=== PATIENT | male | born 1975 | race Caucasian/White ===

== ENCOUNTER 2018-07-15 11:57 | Emergency (ER) | payer SELFPAY ==
[2018-07-15 12:26] LABS: Absolute Lymphocytes (CBC) 1.3 K/uL (0.7-4.9); Absolute Monocytes 0.6 K/uL (0.1-1.3); Absolute Neutrophil 6.9 K/uL (1.8-8.0); Basophils % 0.4 % (0-1.3); Eosinophils % 0.8 % (0-4.4); Hematocrit 42.7 % (39.6-49.0); Lymphocytes % 14.4 % (15.3-44.8); MCH 31.3 pg (27.0-35.0); MCV 91.1 fL (80-100); MPV 7.4 fL (7.6-11.3); Monocytes % 6.5 % (3.3-12.3); RBC Red Blood Cell Count 4.69 M/uL (4.33-5.43)
[2018-07-15] MEDS ORDERED: ASPIRIN 81 MG CHEWABLE TABLET ONE (12:27)
[2018-07-15 12:31] LABS: Protime INR 1.06
[2018-07-15 12:45] LABS: ALT/SGPT 59 U/L (12-78); AST/SGOT 39 U/L (15-37); Albumin 4.2 g/dL (3.4-5.0); Alkaline Phosphatase 90 U/L (45-117); BUN Blood Urea Nitrogen 9 mg/dL (7-18); Bicarbonate 26 mmol/L (21-32); Bilirubin Direct 0.1 mg/dL (0-0.2); Bilirubin Total 0.5 mg/dL (0.2-1.0); Glucose Level 85 mg/dL (74-106); Magnesium 2.1 mg/dL (1.8-2.4); NT PRO-BNP 16 pg/mL (<125); Potassium 3.9 mmol/L (3.5-5.1); Protein, Total 8.8 g/dL (6.4-8.2); Sodium Level 139 mmol/L (136-145); Troponin (Emerg Dept Use Only) < 0.02 ng/mL (0.0-0.045)
--- NOTE | 2018-07-15 13:35 | RAD REPORT ---
EXAM DESCRIPTION: Darcy Single View07/15/2018 1:23 pm CLINICAL HISTORY: Chest pain COMPARISON: none FINDINGS: The lungs appear clear of acute infiltrate. The heart is normal size IMPRESSION: No acute abnormalities displayed
[2018-07-15] MEDS ORDERED: KETOROLAC 30 MG/ML INJ ONE (14:17)
[2018-07-15] MEDS ORDERED: METOPROLOL TAR 25 MG TAB ONE (14:17)
--- NOTE | 2018-07-15 14:44 | ER ---
Nurse's Notes [facility] Name: Douglas Varghese Age: 42 yrs Sex: Male : 1975 Arrival Date: 07/15/2018 Time: 11:58 Bed 8 Private MD: None, None Diagnosis: Chest pain, unspecified Presentation: 07/15 11:58 Presenting complaint: Patient states: Chest pressure since yesterday that is only there aj1 when he takes a deep breath, he went to Urgent Care today to have his medications refilled, but they told him that he needed to come to the ER to be evaluated. Denies SOB, palpitations. Denies cough, congestion. Transition of care: patient was not received from another setting of care. Onset of symptoms was July 14, 2018. Risk Assessment: Do you want to hurt yourself or someone else? Patient reports no desire to harm self or others. Initial Sepsis Screen: Does the patient meet any 2 criteria? HR > 90 bpm. No. Patient's initial sepsis screen is negative. Does the patient have a suspected source of infection? No. Patient's initial sepsis screen is negative. Care prior to arrival: None. 11:58 Method Of Arrival: Ambulatory aj1 11:58 Acuity: PAT 3 aj1 Triage Assessment: 12:01 General: Appears in no apparent distress. uncomfortable, Behavior is calm, cooperative, aj1 appropriate for age. Pain: Complains of pain in mid-sternal area Pain currently is 3 out of 10 on a pain scale. Quality of pain is described as pressure. Neuro: Level of Consciousness is awake, alert, obeys commands. Cardiovascular: Reports chest pain, Patient's skin is warm and dry. Respiratory: Airway is patent Respiratory effort is even, unlabored, Respiratory pattern is regular, symmetrical. Historical: - Allergies: 12:01 No Known Allergies; aj1 - Home Meds: 12:01 losartan oral oral [Active]; Metoprolol Tartrate Oral [Active]; aj1 - PMHx: 12:01 Hypertension; aj1 - Immunization history:: Flu vaccine is not up to date. - Social history:: Smoking status: Patient/guardian denies using tobacco. - Ebola Screening: : Patient denies travel to an Ebola-affected area in the 21 days before illness onset. Screenin:05 Abuse screen: Denies threats or abuse. Denies injuries from another. Nutritional sv screening: No deficits noted. Tuberculosis screening: No symptoms or risk factors identified. Fall Risk None identified. Assessment: 12:13 General: Appears in no apparent distress. comfortable, well groomed, Behavior is calm, ph cooperative, appropriate for age, Denies fever, feeling ill. Pain: Complains of pain in anterior aspect of left upper chest and mid-sternal area Pain does not radiate. Quality of pain is described as pressure, Pain began 1 day ago. Aggravated by breathing. Neuro: Level of Consciousness is awake, alert, obeys commands, Oriented to person, place, time, situation, Reports headache in right parietal area, Denies weakness blurred vision. Cardiovascular: Reports chest pain, Denies nausea, palpitations, shortness of breath, Capillary refill < 3 seconds in bilateral fingers Patient's skin is warm and dry. Chest pain quality is pressure, is located in left anterior chest wall substernal area began 1 day ago is aggravated by breathing. Respiratory: Reports pain with respiration Airway is patent Respiratory effort is even, unlabored, Respiratory pattern is regular, symmetrical, Breath sounds are clear bilaterally. Denies cough, shortness of breath. GI: Patient currently denies abdominal pain, nausea, vomiting. Derm: Skin is intact, is healthy with good turgor, Skin is pink, warm \T\ dry. Musculoskeletal: Circulation, motion, and sensation intact. Range of motion: intact in all extremities. 13:46 Reassessment: Patient appears in no apparent distress at this time. No changes from ph previously documented assessment. Patient and/or family updated on plan of care and expected duration. Pain level reassessed. Patient is alert, oriented x 3, equal unlabored respirations, skin warm/dry/pink. 14:57 Reassessment: Patient appears in no apparent distress at this time. Patient and/or ph family updated on plan of care and expected duration. Pain level reassessed. Patient is alert, oriented x 3, equal unlabored respirations, skin warm/dry/pink. Pt reports that chest discomfort has improved, rates 09/16, pt given prescriptions for home BP meds and a list of providers in the area, d/c home w/ SO. Vital Signs: 12:01 BP 155 / 101; Pulse 93; Resp 18; Temp 97.1; Pulse Ox 99% on R/A; Weight 97.52 kg (R); aj1 Height 5 ft. 11 in. (180.34 cm) (R); Pain 3/10; 12:38 BP 143 / 104; Pulse 88; Resp 18; Pulse Ox 100% on R/A; ph 13:45 BP 159 / 103; Pulse 84; Resp 18; Pulse Ox 98% on R/A; ph 14:46 BP 145 / 81; Pulse 74; Resp 14; Temp 97.4; Pulse Ox 99% on R/A; Pain 1/10; ph 12:01 Body Mass Index 29.99 (97.52 kg, 180.34 cm) aj1 Vitals: 12:38 Cardiac Rhythm Assessment Sinus rhythm. ph ED Course: 11:58 Patient arrived in ED. sb2 11:58 None, None is Private Physician. sb2 12:00 Triage completed. aj1 12:01 Arm band placed on Patient placed in an exam room. aj1 12:04 Loida Mclean, RN is Primary Nurse. ph 12:05 Patient has correct armband on for positive identification. Bed in low position. Door sv closed. Head of bed elevated. 12:06 Robert Miles PA is PHCP. jr8 12:07 Kole Guillaume MD is Attending Physician. jr8 12:17 desk monitor on. Pulse ox on. NIBP on. Warm blanket given. ph 12:18 Patient maintains SpO2 saturation greater than 95% on room air. ph 12:23 Initial lab(s) drawn, by mo, sent to lab. Inserted saline lock: 20 gauge in right em1 antecubital area, using aseptic technique. Blood collected. 12:28 EKG done, by manufacturing plant technician. reviewed by Robert GARVIN. at1 13:23 XRAY Chest (1 view) In Process Unspecified. EDMS 14:59 No provider procedures requiring assistance completed. IV discontinued, intact, ph bleeding controlled, No redness/swelling at site. Pressure dressing applied. Administered Medications: 12:23 Drug: Aspirin Chewable Tablet 324 mg Route: PO; ph 14:45 Follow up: Response: No adverse reaction ph 14:13 Drug: Metoprolol 25 mg Route: PO; ph 14:46 Follow up: Response: No adverse reaction; Blood pressure is lowered ph 14:14 Drug: TORadol 30 mg Route: IVP; Site: right antecubital; ph 14:45 Follow up: Response: No adverse reaction; Pain is decreased ph 14:45 Drug: Losartan-Hydrochlorothiazide 50 mg-12.5 mg 1 tablet Route: PO; ph 14:46 Follow up: Response: No adverse reaction; Medication administered at discharge.; same ph as pt's home medication Intake: Outcome: 14:43 Discharge ordered by MD. winslow 14:59 Discharged to home ambulatory, with significant other. ph 14:59 Condition: good 14:59 Discharge instructions given to patient, Instructed on discharge instructions, follow up and referral plans. medication usage, Demonstrated understanding of instructions, follow-up care, medications, Prescriptions given X 3. 15:00 Patient left the ED. ph Signatures: Dispatcher [employer] EDMS Anais Holt RN RN aj1 Patricia Mclaughlin RN RN Priyank Adams em1 Robert Miles PA PA jr8 Esther Luevano, contract negotiation manager EKG Tat1 Loida Mclean RN RN Aide Wolfe sb2
--- NOTE | 2018-07-15 14:44 | EDPHYS ---
Physician Documentation [facility] Name: Douglas Varghese Age: 42 yrs Sex: Male : 1975 Arrival Date: 07/15/2018 Time: 11:58 Bed 8 Private MD: None, None ED Physician Kole Guillaume HPI: 07/15 12:31 This 42 yrs old Male presents to ER via Ambulatory with complaints of Chest Pain. jr8 12:31 The patient or guardian reports chest pain that is located primarily in the substernal jr8 area. Onset: acutely, today. The pain does not radiate. Associated signs and symptoms: The patient has no apparent associated signs or symptoms. The chest pain is described as a pressure. Duration: The patient or guardian reports a single episode, that is still ongoing. Modifying factors: The symptoms are alleviated by nothing. the symptoms are aggravated by breathing. Severity of pain: At its worst the pain was mild in the emergency department the pain is unchanged. The patient has not experienced similar symptoms in the past. The patient has not recently seen a physician. Historical: - Allergies: 12:01 No Known Allergies; aj1 - Home Meds: 12:01 losartan oral oral [Active]; Metoprolol Tartrate Oral [Active]; aj1 - PMHx: 12:01 Hypertension; aj1 - Immunization history:: Flu vaccine is not up to date. - Social history:: Smoking status: Patient/guardian denies using tobacco. - Ebola Screening: : Patient denies travel to an Ebola-affected area in the 21 days before illness onset. ROS: 12:31 Eyes: Negative for injury, pain, redness, and discharge, ENT: Negative for injury, jr8 pain, and discharge, Neck: Negative for injury, pain, and swelling, Respiratory: Negative for shortness of breath, cough, wheezing, and pleuritic chest pain, Abdomen/GI: Negative for abdominal pain, nausea, vomiting, diarrhea, and constipation, Back: Negative for injury and pain, MS/Extremity: Negative for injury and deformity, Skin: Negative for injury, rash, and discoloration, Neuro: Negative for headache, weakness, numbness, tingling, and seizure. 12:31 Cardiovascular: Positive for chest pain, Negative for edema, orthopnea, palpitations, paroxysmal nocturnal dyspnea. Exam: 12:31 Eyes: Pupils equal round and reactive to light, extra-ocular motions intact. Lids and jr8 lashes normal. Conjunctiva and sclera are non-icteric and not injected. Cornea within normal limits. Periorbital areas with no swelling, redness, or edema. ENT: Nares patent. No nasal discharge, no septal abnormalities noted. Tympanic membranes are normal and external auditory canals are clear. Oropharynx with no redness, swelling, or masses, exudates, or evidence of obstruction, uvula midline. Mucous membranes moist. Neck: Trachea midline, no thyromegaly or masses palpated, and no cervical lymphadenopathy. Supple, full range of motion without nuchal rigidity, or vertebral point tenderness. No Meningismus. Chest/axilla: Normal chest wall appearance and motion. Nontender with no deformity. No lesions are appreciated. Cardiovascular: Regular rate and rhythm with a normal S1 and S2. No gallops, murmurs, or rubs. Normal PMI, no JVD. No pulse deficits. Respiratory: Lungs have equal breath sounds bilaterally, clear to auscultation and percussion. No rales, rhonchi or wheezes noted. No increased work of breathing, no retractions or nasal flaring. Abdomen/GI: Soft, non-tender, with normal bowel sounds. No distension or tympany. No guarding or rebound. No evidence of tenderness throughout. Back: No spinal tenderness. No costovertebral tenderness. Full range of motion. Skin: Warm, dry with normal turgor. Normal color with no rashes, no lesions, and no evidence of cellulitis. MS/ Extremity: Pulses equal, no cyanosis. Neurovascular intact. Full, normal range of motion. Neuro: Awake and alert, GCS 15, oriented to person, place, time, and situation. Cranial nerves II-XII grossly intact. Motor strength 5/5 in all extremities. Sensory grossly intact. Cerebellar exam normal. Normal gait. 12:31 ECG was reviewed by the Attending Physician. Vital Signs: 12:01 BP 155 / 101; Pulse 93; Resp 18; Temp 97.1; Pulse Ox 99% on R/A; Weight 97.52 kg (R); aj1 Height 5 ft. 11 in. (180.34 cm) (R); Pain 3/10; 12:38 BP 143 / 104; Pulse 88; Resp 18; Pulse Ox 100% on R/A; ph 13:45 BP 159 / 103; Pulse 84; Resp 18; Pulse Ox 98% on R/A; ph 14:46 BP 145 / 81; Pulse 74; Resp 14; Temp 97.4; Pulse Ox 99% on R/A; Pain 1/10; ph 12:01 Body Mass Index 29.99 (97.52 kg, 180.34 cm) aj1 MDM: 12:07 Patient medically screened. jr8 14:42 The patient was given aspirin in the Emergency Department. Data reviewed: vital signs, jr8 nurses notes, lab test result(s), EKG, radiologic studies, plain films, and as a result, I will discharge patient. Data interpreted: Pulse oximetry: on room air is 98 %. Interpretation: normal. Counseling: I had a detailed discussion with the patient and/or guardian regarding: the historical points, exam findings, and any diagnostic results supporting the discharge/admit diagnosis, lab results, radiology results, the need for outpatient follow up, a family practitioner, to return to the emergency department if symptoms worsen or persist or if there are any questions or concerns that arise at home. 14:44 ED course: Patient feeling better after toradol. Second troponin negative. Most likely jr8 musculoskeletal in nature. Will follow up with PCP . 07/15 12:12 Order name: Basic Metabolic Panel; Complete Time: 12:46 jr8 07/15 12:12 Order name: CBC with Diff; Complete Time: 12:28 jr8 07/15 12:12 Order name: LFT's; Complete Time: 12:46 8 07/15 12:12 Order name: Magnesium; Complete Time: 12:46 jr8 07/15 12:12 Order name: NT PRO-BNP; Complete Time: 12:46 jr8 07/15 12:12 Order name: PT-INR; Complete Time: 12:35 jr8 07/15 12:12 Order name: Troponin (emerg Dept Use Only); Complete Time: 12:46 jr8 07/15 12:12 Order name: XRAY Chest (1 view); Complete Time: 13:43 jr8 07/15 12:12 Order name: EKG; Complete Time: 12:13 jr8 07/15 14:04 Order name: Troponin (emerg Dept Use Only); Complete Time: 14:42 ph 07/15 12:12 Order name: Cardiac monitoring; Complete Time: 12:18 07/15 12:12 Order name: EKG - Nurse/Tech; Complete Time: 12:07/15 12:12 Order name: IV Saline Lock; Complete Time: 12:23 07/15 12:12 Order name: Labs collected and sent; Complete Time: 12:23 07/15 12:12 Order name: O2 Per Protocol; Complete Time: :07/15 12:12 Order name: O2 Sat Monitoring; Complete Time: : EC:31 Rate is 83 beats/min. Rhythm is regular, Normal Sinus Rhythm. QRS [place] is Normal. [place] jr8 interval is normal at 138 msec. QRS interval is normal at 80 msec. QT interval is normal at 427 msec. No Q waves. T waves are Normal. No ST changes noted. Clinical impression: LVH and No evidence of ischemia. Interpreted by me. Reviewed by me. Administered Medications: 12:23 Drug: Aspirin Chewable Tablet 324 mg Route: PO; ph 14:45 Follow up: Response: No adverse reaction ph 14:13 Drug: Metoprolol 25 mg Route: PO; ph 14:46 Follow up: Response: No adverse reaction; Blood pressure is lowered ph 14:14 Drug: TORadol 30 mg Route: IVP; Site: right antecubital; ph 14:45 Follow up: Response: No adverse reaction; Pain is decreased ph 14:45 Drug: Losartan-Hydrochlorothiazide 50 mg-12.5 mg 1 tablet Route: PO; ph 14:46 Follow up: Response: No adverse reaction; Medication administered at discharge.; same ph as pt's home medication Disposition: 16:26 Co-signature as Attending Physician, Kole Guillaume MD I agree with the assessment and kdr plan of care. Disposition: 07/15/18 14:43 Discharged to Home. Impression: Chest pain, unspecified. - Condition is Stable. - Discharge Instructions: Nonspecific Chest Pain, Chest Wall Pain, Hypertension. - Prescriptions for losartan- hydrochlorothiazide 50-12.5 mg Oral tablet - take 1 tablet by ORAL route 2 times per day; 60 tablet. metoprolol succinate 25 mg Oral tablet extended release 24 hr - take 1 tablet by ORAL route 2 times per day; 60 tablet. Ibuprofen 800 mg Oral Tablet - take 1 tablet by ORAL route every 12 hours As needed take with food; 20 tablet. - Medication Reconciliation Form, Thank You Letter, Antibiotic Education, Prescription Opioid Use, Work release form form. - Follow up: Private Physician; When: 2 - 3 days; Reason: Recheck today's complaints, Continuance of care, Re-evaluation by your physician. - Problem is new. - Symptoms have improved. Signatures: Dispatcher [employer] EDMS Anais Holt RN RN aj1 Kole Guillaume MD MD [facility] Robert Miles PA PA jr8 Loida Mclean RN RN ph Corrections: (The following items were deleted from the chart) 15:00 14:43 07/15/2018 14:43 Discharged to Home. Impression: Chest pain, unspecified. ph Condition is Stable. Forms are Medication Reconciliation Form, Thank You Letter, Antibiotic Education, Prescription Opioid Use. Follow up: Private Physician; When: 2 - 3 days; Reason: Recheck today's complaints, Continuance of care, Re-evaluation by your physician. Problem is new. Symptoms have improved. jr8
[2018-07-15] MEDS ORDERED: LOSARTAN/HCTZ 50-12.5 PO ONE (15:00)
--- NOTE | 2018-07-16 07:09 | EKG ---
Test Date: 2018-07-15 Test Time: 12:14:44 Business Applications Specialist: AG2 MEASUREMENT RESULTS: Intervals: Rate: 83 MD: 138 QRSD: 80 QT: 364 QTc: 427 [place]: P: 73 MD: 138 QRS: 61 T: 42 INTERPRETIVE STATEMENTS: Normal sinus rhythm Moderate voltage criteria for LVH, may be normal variant Borderline ECG No previous ECG available for comparison Electronically Signed On 07-16-18 07:07:16 HOUSEKEEPING AID by Abdulaziz Roth
== END 2018-07-15 15:00 | disposition home or self-care (01) ==
LOC: ER 11:57
DX: R07.9 Chest pain, unspecified (principal); I10 Essential (primary) hypertension
CPT/HCPCS: 36415; 71045; 80048; 80076; 83735; 83880; 84484; 85025; 85610; 93005; 96374; 99285